=== PATIENT | female | born 1980 | race Two or more races ===

== ENCOUNTER 2018-02-24 07:09 | Inpatient (IN) | payer BC ==
[2018-02-24] VITALS (17 sets, daily range): BP systolic 110–127; BP diastolic 53–78
[~2018-02-24] VITALS: Ht 167.6 cm; Wt 60.3 kg
[~2018-02-24 07:09] MED LIST: LOSARTAN POTASS25 MG ORAL; Pantoprazole Inj IVP ONE; VENLAFAXINE HCL25 MG ORAL; Vancomycin 1gm/D5W 275ml IVPB ONE
--- NOTE | 2018-02-24 07:42 | Pre-Procedure Note/Attestation ---
Pre-Procedure Note/Attestation Complete Prior to Procedure Planned Procedure: bilateral Procedure Narrative: Removal of disc arthroplasty at C5-6 and revision to anterior cervical fusion with PEEK interbody graft, titanium stabilization and use of iliac crest cancellous autograft. Attestation I attest that I discussed the nature of the procedure; its benefits; risks and complications; and alternatives (and the risks and benefits of such alternatives ), prior to the procedure, with the patient (or the patient's legal compliance representative dealer). I attest that, if there was a reasonable possibility of needing a blood transfusion, the patient (or the patient's legal compliance representative dealer) was given the [facility] standardized written summary, pursuant to the [place] Blood Safety Act ([place] Health and Safety Code # 1645, as amended). I attest that I re-evaluated the patient just prior to the surgery and that there has been no change in the patient's H&P, except as documented below: Chico Yeung MD Feb 24, 2018 07:42
[2018-02-24] MEDS ORDERED: Thrombin 5000 units spray kit TOPIC ONE (08:21)
[2018-02-24] MEDS ORDERED: Bupivacaine w/Epi 0.5% 30ml Vial INJ ONE (08:21)
[2018-02-24] MEDS ORDERED: Gelfoam Size TOPIC ONE ×2 (08:21→10:26)
[2018-02-24] MEDS ORDERED: Gelfoam Absorbable 1gm powder pkt TOPIC ONE (08:21)
[2018-02-24] MEDS ORDERED: Thrombin 5000 units TOPIC ONE ×2 (08:21→08:22)
[2018-02-24] MEDS ORDERED: Bacitracin 50000 Units Vial ONE (08:22)
[2018-02-24] MEDS ORDERED: Pantoprazole Inj ONE (08:27)
[2018-02-24] MEDS ORDERED: Zemuron 50mg/5ml Inj IV ONE (08:28)
[2018-02-24] MEDS ORDERED: LR 1000ml ONE (08:30)
[2018-02-24] MEDS ORDERED: NS Irrig 1000ml ONE (08:30)
[2018-02-24] MEDS ORDERED: Propofol 1,000mg/ 100ml btl IV ONE (08:30)
[2018-02-24] MEDS ORDERED: Sterile Water Irrig 1000ml IRRIG ONE (08:30)
[2018-02-24] MEDS ORDERED: Vancomycin 1gm inj IVPB ONE (08:36)
[2018-02-24] MEDS ORDERED: Heparin 1000 units/ml 1ml Vial ONE (08:43)
[2018-02-24] MEDS ORDERED: Lidocaine 1% MPF 10mg/ml 5ml ONE (08:48)
[2018-02-24] MEDS ORDERED: Dexamethasone 4mg/ml vial ONE (08:48)
[2018-02-24] MEDS ORDERED: LR 1000ml 1,000 ML IVLG SCH (08:48)
[2018-02-24] MEDS ORDERED: Lidocaine 1% Plain 30 ml INJ ONE (08:49)
--- NOTE | 2018-02-24 08:51 | Anethesia Preoperative Eval ---
Anesthesia Pre-op PMH/ROS General Date of Evaluation: Feb 24, 2018 Time of Evaluation: 08:36 Anesthesiologist: Shamar ASA Score: ASA 2 Mallampati Score Class I : Soft palate, uvula, fauces, pillars visible Class II: Soft palate, uvula, fauces visible Class III: Soft palate, base of uvula visible Class IV: Only hard plate visible Mallampati Classification: Class I Surgeon: Gamal Diagnosis: Neck Pain Surgical Procedure: ACDF C5-6 Anesthesia History: none Allergies: Coded Allergies: LACTOSE (Verified Allergy, Severe, 02/23/18) ABD PAIN,BLOATING,SKIN RASH [place] (Verified Allergy, Severe, 02/23/18) ABD PAIN, BLOATING, SKIN RASH,CONSTIPATION Patient NPO?: Yes NPO Date: Feb 23, 2018 NPO Time: 2200 Past Medical History Cardiovascular: Reports: HTN Gastrointestinal/Genitourinary: Reports: GERD Neurologic/Psychiatric: Reports: depression/anxiety PSxH Narrative: C5-6 ADR Anesthesia Pre-op Phys. Exam Physician Exam Last Vital Signs Date Time Temp Pulse Resp B/P (MAP) Pulse Ox O2 Delivery O2 Flow Rate FiO2 02/24/18 07:57 98.0 72 18 116/77 (90) 100 98.0 02/24/18 07:40 Room Air Constitutional: NAD Neurologic: CN 2-12 intact Cardiovascular: RRR Respiratory: CTA Gastrointestinal: S/NT/ND Airway Exam Mallampati Score: Class I MO: full ROM: limited Teeth: intact Anesthesia Pre-op A/P Labs Urine Test Test 02/24/18 07:18 Urine HCG, Qualitative Negative (NEGATIVE) Risk Assessment & Plan Assessment: ASA 2 Plan: GA, SED GlideScope Go Status Change Before Surgery: No Pre-Antibiotics Dru Gram Vancomycin IV Given Within 1 Hr of Incision: Yes Time Given: 09:56 Cornelius Ibanez MD Feb 24, 2018 08:51
[2018-02-24] MEDS ORDERED: fentaNYL 100 mcg/2 mL IV PRN (09:00)
[2018-02-24] MEDS ORDERED: Acetaminophen (Non formulary) 100 ML IV ONE (09:00)
[2018-02-24] MEDS ORDERED: HYDROcodone/Acetamin 7.5/325 tab ORAL PRN ×3 (09:00→14:38)
[2018-02-24] MEDS ORDERED: DiphenhydrAMINE 50mg/ml Inj IVP PRN (09:00)
[2018-02-24] MEDS ORDERED: LORazepam Inj 2mg/ml 1ml IV PRN (09:00)
[2018-02-24] MEDS ORDERED: Midazolam 2mg/2ml Inj IVP PRN (09:00)
[2018-02-24] MEDS ORDERED: oxyCODONE HCL/Acetaminophen 5/325mg ORAL PRN (09:00)
[2018-02-24] MEDS ORDERED: Atropine Sulfate 0.4mg/ml inj IVP PRN (09:00)
[2018-02-24] MEDS ORDERED: Meperidine 50mg/ml Inj(FOR RIGORS ONLY) IVP PRN (09:00)
[2018-02-24] MEDS ORDERED: Ketorolac 30mg Inj IV PRN ×2 (09:00)
[2018-02-24] MEDS ORDERED: Norco 5mg/325mg tab ORAL PRN (09:00)
[2018-02-24] MEDS ORDERED: Metoclopramide 10mg/2ml Inj IVP PRN (09:00)
[2018-02-24] MEDS ORDERED: NS Irrig 1000ml IRRIG ONE (10:16)
[2018-02-24] MEDS ORDERED: fentaNYL 100 mcg/2 mL IV ONE (10:59)
[2018-02-24] MEDS ORDERED: Naloxone 0.4mg/ml Inj ONE (11:06)
--- NOTE | 2018-02-24 11:19 | Immediate Post-Op Evaluation ---
Immediate Post-Op Evalulation Immediate Post-Op Evalulation Procedure: ACDF C5-6 Date of Evaluation: Feb 24, 2018 Time of Evaluation: 11:54 IV Fluids: 800 LR Blood Products: 0 Estimated Blood Loss: 25 Urinary Output: 500 Blood Pressure Systolic: 127 Blood Pressure Diastolic: 67 Pulse Rate: 94 Respiratory Rate: 16 O2 Sat by Pulse Oximetry: 100 Temperature (Fahrenheit): 97.1 Pain Score (1-10): 2 Nausea: No Vomiting: No Complications 0 Patient Status: awake, reacts, patent, extubated, none Hydration Status: adequate Dru Gram Vancomycin IV Given Within 1 Hr of Incision: Yes Time Given: 09:56 Cornelius Ibanez MD Feb 24, 2018 11:19
--- NOTE | 2018-02-24 11:49 | Brief Operative Note ---
Immediate Post Operative Note Operative Note Chief Complaint: Neck pain and radiculopathy, headache, possible allergry to [place] implant Pre-op Diagnosis: 1. status post C5-6 Mob-C disc arthroplasty 2. persistent neck pain, radiculopathy and cervicogenic failure. 3. possible Co allergy. 4. Lack of improvement form conservative care, including interventional pain injections Procedure: 1. Redo anterior retropharyngeal approach and take down of scar and exposure of anterior cevical spine. 2. Removal of Mobi-C disc arthroplasty, C5-6 level. 3. [place] of cancellous bone from left iliac crest with Corex device for grafting 4. Anterior arthrodesis using 11-mm plates 5. Insertion of 8 mm biomechanical PEEK cage at C5-6 under fibroscopy guidance 6. Bilateral neuro-foraminotomy at C5-6 level 7. Microdissection using operative microscope 8. Intra-operative use and interpretation of neuromonitoring 9. Supervision, use and interpretation of intra-operative fluoroscopy for localization and instrumentation of spine 10. Plastic surgical closure of 6 cm cervical wound 11. Modifier 22 for degree of difficulty Post-op Diagnosis: same as pre-op Findings: consistent w/pre-op dx studies Surgeon: Chico Yeung M.D. Land Leasing Examiner: Vamsi Conklin M.D. Anesthesiologist: Elbert Anesthesia: general Specimen: yes - Explanted artificial disc Complications: none Condition: stable Fluids: 800 cc Estimated Blood Loss: minimal Drains: none Implant(s) used?: Yes - PEEK implant and Ti Blades (FIDELIA-C) and [place] Chico Yeung MD Feb 24, 2018 11:49
[2018-02-24] MEDS ORDERED: HYDROmorphone 1mg/ml Carpuject IVP PRN (12:15)
[2018-02-24] MEDS ORDERED: Milk of Magnesia 30ml Ud ORAL PRN (12:15)
--- NOTE | 2018-02-24 12:15 | General Progress Note ---
Progress Note Progress Note Neurosurgeru Rec room S/ Comfortable No arm pain O/ vs: Last 24 Hour Vital Signs Date Time Temp Pulse Resp B/P (MAP) Pulse Ox O2 Delivery O2 Flow Rate FiO2 02/24/18 12:00 100 13 112/61 100 Simple Mask 6 02/24/18 11:49 83 21 117/73 100 Simple Mask 6 02/24/18 11:44 99 21 126/73 100 Simple Mask 6 02/24/18 11:42 206.8 94 16 100 02/24/18 11:39 97.1 101 14 127/67 100 Simple Mask 6 97.1 02/24/18 07:57 98.0 72 18 116/77 (90) 100 98.0 02/24/18 07:40 Room Air Alert and oriented Moves all extremities well Incisions are C/D/I Doing well admit to th efloor when cleared pt.s was informed of the details of the procedure and pt's condition. Chico Yeung MD Feb 24, 2018 12:15
[2018-02-24] MEDS: Hydromorphone 0.5mg/0.5ml inj IVP PRN ×2 (12:25→12:53)
--- NOTE | 2018-02-24 13:50 | Diagnostic Imaging Report ---
Indication: Neck Pain Findings: 4 fluoroscopic views of the cervical spine were obtained. Intraoperative imaging showing localization followed by removal of the prosthetic disc at C5-6 and placement of the anterior fusion hardware. IMPRESSION: Intraoperative imaging
[2018-02-24] MEDS: ceFAZolin sod 1 GM in D5W 55 ML IV SCH ×2 (15:30→22:03)
[2018-02-24] MEDS: NS w/KCl 20mEq 1,000 ML IV SCH (15:31)
[2018-02-24] MEDS: Docusate 100mg cap ORAL SCH (17:55)
[2018-02-24] MEDS: Docusate Sod/Senna tab ORAL SCH (17:58)
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
[2018-02-25] VITALS: BP 118/76
[2018-02-25] MEDS: NS w/KCl 20mEq 1,000 ML IV SCH ×2 (01:59→11:00)
[2018-02-25 04:00] VITALS: BP 111/66
[2018-02-25] MEDS: ceFAZolin sod 1 GM in D5W 55 ML IV SCH (06:23)
[2018-02-25 08:00] VITALS: BP 118/76
[2018-02-25] MEDS: Docusate Sod/Senna tab ORAL SCH (08:32)
[2018-02-25] MEDS: Docusate 100mg cap ORAL SCH (08:32)
[2018-02-25] MEDS ORDERED: Losartan 25mg tab ORAL SCH (09:00)
[2018-02-25] MEDS ORDERED: Venlafaxine XR 75mg cap ORAL SCH (09:00)
[2018-02-25] MEDS ORDERED: Norco 5mg/325mg tab ORAL PRN (09:30)
--- NOTE | 2018-02-25 11:40 | 48 Hour Post Anesthesia Eval ---
Post Anesthesia Evaluation Procedure: ACDF C5-6 Date of Evaluation: Feb 25, 2018 Time of Evaluation: 06:10 Blood Pressure Systolic: 111 0: 66 Pulse Rate: 73 Respiratory Rate: 18 Temperature (Fahrenheit): 97.6 O2 Sat by Pulse Oximetry: 100 Airway: patent Nausea: No Vomiting: No Pain Intensity: 2 Hydration Status: adequate Cardiopulmonary Status: at baseline Mental Status/LOC: patient returned to baseline Post-Anesthesia Complications: 0 Follow-up care needed: N/A - further care as per primary team Robyn French MD Feb 25, 2018 11:40
[2018-02-25 12:00] VITALS: BP 118/70
[2018-02-25 16:00] VITALS: BP 110/62
--- NOTE | 2018-02-25 16:01 | General Progress Note ---
Progress Note Progress Note Neurosurghery S/ Doing well. Ambulated No neck incisional pain. No arm pain. Only left hip graft site pain.No swallowing difficulty. O/ Vs. Last 24 Hour Vital Signs Date Time Temp Pulse Resp B/P (MAP) Pulse Ox O2 Delivery O2 Flow Rate FiO2 02/25/18 12:00 97.8 80 18 118/70 (86) 95 97.8 02/25/18 11:40 207.7 73 18 100 02/25/18 09:00 Nasal Cannula 3.0 02/25/18 08:31 118/76 02/25/18 08:00 98.8 100 20 118/76 (90) 100 98.8 02/25/18 04:00 97.6 73 18 111/66 (81) 100 97.6 02/25/18 00:00 97.6 82 19 118/76 (90) 100 97.6 02/24/18 21:00 Nasal Cannula 3.0 02/24/18 20:00 97.1 90 18 122/78 (93) 100 97.1 02/24/18 16:30 98.0 101 19 115/71 (86) 99 98.0 Alert, oriented pleasant. Cervical and left hip dressing are dry, clean and intact. Upper extremity strength 5/5 Normal sensory exam in the upper and lowers doing well D/c instructions reviewed with the pt and nursing in detail. Chico Yeung MD Feb 25, 2018 16:01
[2018-02-25] MEDS ORDERED: NORCO 5-325 TA1 EACH ORAL (16:41)
[2018-02-25] MEDS ORDERED: SENNA8.8 MG/5 M PO (16:42)
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
== END 2018-02-25 17:50 | disposition home or self-care (01) | DRG 473 ==
LOC: SDSOVERFLO 07:09 → 3E 13:30
PROC: 0RN Upper Joints, Release (ICD-10-PCS; principal; 2018-02-24 10:00)
PROC: 0QB30ZZ Excision of Left Pelvic Bone, Open Approach (ICD-10-PCS; principal; 2018-02-24 10:00)
PROC: 0RG10A0 Fusion of Cervical Vertebral Joint with Interbody Fusion Device, Anterior Approach, Anterior Column, Open Approach (ICD-10-PCS; principal; 2018-02-24 10:00)
PROC: 0RP30JZ Removal of Synthetic Substitute from Cervical Vertebral Disc, Open Approach (ICD-10-PCS; principal; 2018-02-24 10:00)
DX: M50.122 Cervical disc disorder at C5-C6 level with radiculopathy (principal); V89.2XXS Person injured in unspecified motor-vehicle accident, traffic, sequela; Z88.8 Allergy status to other drugs, medicaments and biological substances; I10 Essential (primary) hypertension; Z98.890 Other specified postprocedural states
CPT/HCPCS: 36415; 72040; 76001; 81025; 83735; 86850; 86900; 86901; 87081; C9399; J2405